=== PATIENT | female | born 1935 | race Caucasian/White ===

== ENCOUNTER 2021-08-15 21:29 | Emergency (ER) | payer SELFPAY ==
[~2021-08-15] VITALS: Ht 160 cm; Wt 40.8 kg
[2021-08-15 21:35] VITALS: BP 135/79
[2021-08-15] MEDS ORDERED: MORPHINE SULFATE 4 MG/ML SYR IVP ONE (22:45)
[2021-08-15] MEDS ORDERED: ONDANSETRON 4 MG/2 ML VIAL IVP ONE (22:45)
[2021-08-15] MEDS ORDERED: NACL 0.9% 1,000 ML IV ONE (22:45)
[2021-08-15 23:02] LABS: BASOPHILS % (AUTO) 0.3 % (0.0-2.0); EOSINOPHILS % (AUTO) 0.2 % (0.0-4.0); HEMATOCRIT 38.4 % (36-48); HEMOGLOBIN 13.1 g/dL (12.0-16.0); LYMPHOCYTES # (AUTO) 0.2 K/uL (2.5-16.5); LYMPHOCYTES % (AUTO) 2.6 % (20.5-51.1); MEAN CORPUSCULAR HEMOGLOBIN 32 pg (27-31); MEAN CORPUSCULAR HGB CONC 34 g/dL (33-37); MEAN CORPUSCULAR VOLUME 92.1 fL (80-94); MONOCYTES # (AUTO) 0.6 K/uL (0.8-1.0); MONOCYTES % (AUTO) 6.8 % (1.7-9.3); NEUTROPHILS # (AUTO) 8.4 K/uL (1.8-7.7); NEUTROPHILS % (AUTO) 90.1 % (42.2-75.2); PLATELET COUNT (AUTO) 204 K/uL (140-450); RED BLOOD CELL COUNT(AUTO) 4.18 MIL/uL (4.20-5.40); RED CELL DISTRIBUTION WIDTH 12.9 % (11.6-13.7); WHITE BLOOD COUNT (AUTO) 9.3 K/uL (4.8-10.8)
[2021-08-15 23:28] LABS: ALBUMIN 4.1 g/dL (3.4-5.0); AMYLASE 281 U/L (25-115); ANION GAP 11.4 (8-16); ASPARTATE AMINOTRANSFERASE 33 U/L (15-37); CARBON DIOXIDE 26.7 mmol/L (21-32); CHLORIDE 98 mmol/L (98-107); CREATININE 0.8 mg/dL (0.6-1.3); GLUCOSE 114 mg/dL (74-106); LIPASE 373 U/L (73-393); POTASSIUM 4.1 mmol/L (3.5-5.1); SODIUM SERUM 132 mmol/L (136-145); UREA NITROGEN, BLOOD 16 mg/dL (7-18)
[2021-08-16] MEDS ORDERED: ONDA-188 PO (03:23)
[2021-08-16 03:34] VITALS: BP 123/77
== END 2021-08-16 03:34 | disposition home or self-care (01) ==
LOC: MED 21:29
DX: R11.2 Nausea with vomiting, unspecified (principal); N28.1 Cyst of kidney, acquired; R10.84 Generalized abdominal pain; Z79.899 Other long term (current) drug therapy; Z88.0 Allergy status to penicillin
CPT/HCPCS: 36415; 74177; 80053; 82150; 83690; 84484; 84703; 85025; 93005; 96361; 96374; 96375; 99285; J2270; J2405; J7030; Q9967